=== PATIENT | female | born 1940 | race Caucasian/White ===

== ENCOUNTER 2016-08-10 10:18 | Outpatient (CLI) | payer MEDICARE, OTHER | END 2016-08-10 10:19 | disposition home or self-care (01) | DX: I10 Essential (primary) hypertension (principal); E11.9 Type 2 diabetes mellitus without complications; E78.00 Pure hypercholesterolemia, unspecified ==

== ENCOUNTER 2016-09-19 15:10 | Outpatient (CLI) | payer MEDICARE, OTHER ==
--- NOTE | 2016-09-20 18:58 | Ultrasound Report ---
TRANSVAGINAL ULTRASOUND: 09/19/2016 Patient has postmenopausal bleeding. Patient states that she still has periods and is on hormone rep lacement therapy for three years. Transvaginal pelvic ultrasound performed for detailed evaluation. Real-time scanning performed and s tatic images obtained. FINDINGS: Uterus is retroverted. It measures 8.5 cm x 3.9 cm x 7.4 cm for a volume of 128.3 mL. Ut erus demonstrates two central intrauterine cavities that suggest a bicornate uterus. The right centr al intrauterine cavity shows an endometrial echo complex of 6.4 mm. The left endometrial echo comple x has a diameter of 4.6 mm. No enhanced vascularity is detected in either central intrauterine cavit y. No fibroids are noted. Right ovary was not seen. Left ovary measures 2.5 cm x 1.9 cm x 1.4 cm for a volume of 3.5 mL. A benign left ovarian cyst is n oted measuring 2.9 cm x 2.4 cm x 2.2 cm. A small amount of fluid is noted in the cul-de-sac. IMPRESSION: UTERUS IS RETROVERTED, RETROFLEXED WITH A BICORNUATE CONFIGURATION. EACH ENDOMETRIAL ECHO COMPLEX SH OWS NO SIGNIFICANT ABNORMALITY WITH A DIAMETER THAT IS WITHIN NORMAL LIMITS. BENIGN LEFT OVARIAN CYST IS NOTED MEASURING 2.9 CM X 2.4 CM X 2.2 CM. RIGHT OVARY WAS NOT VISUALIZED. THIS SUGGESTS IT IS ATROPHIC. JOB #: [id number] EXT JOB #:[id number]
== END 2016-09-19 15:11 | disposition home or self-care (01) ==
LOC: DI 15:10
PROVIDERS: ATTEND Nurse Practitioner Obstetrics & Gynecology
DX: N83.202 Unspecified ovarian cyst, left side (principal); N95.0 Postmenopausal bleeding; N85.4 Malposition of uterus
CPT/HCPCS: 76830

== ENCOUNTER 2017-06-14 12:46 | Emergency (ER) | payer MEDICARE, OTHER ==
[2017-06-14 13:07] VITALS: BP 125/80
[2017-06-14] MEDS ORDERED: AMOX/CLAV 875 MG/125 MG TABLET PO STA (14:15)
[2017-06-14] MEDS ORDERED: HYDROcod/ACETAM 5/325 MG TABLET PO STA (14:15)
--- NOTE | 2017-06-14 14:17 | ED Physician Documentation ---
PD HPI UPPER EXT INJURY - Stated complaint Stated Complaint: LEFT ARM REDNESS - Chief complaint Chief Complaint: Ext Problem - History obtained from History obtained from: Patient - History of Present Illness Location: Other (She scraped her left forearm on a sharp edge in the house about 2 weeks ago. About 5 days ago it started to become red and more painful and warm. No general fevers. Tetanus is up-to-date.) Review of Systems Constitutional: denies: Fever, Chills GI: denies: Abdominal Pain, Nausea, Vomiting PD PAST MEDICAL HISTORY - Past Medical History Past Medical History: Yes Cardiovascular: Hypertension Neuro: None Endocrine/Autoimmune: Type 2 diabetes GI: Diverticulitis : None HEENT: Other Musculoskeletal: None Derm: None - Past Surgical History Past Surgical History: Yes General: Appendectomy, Bowel surgery - Present Medications Home Medications: Ambulatory Orders Medication Instructions Recorded Confirmed Pioglitazone [Actos] 30 mg ORAL DAILY 09/22/13 10/29/15 Albuterol Sulfate [Proventil Hfa 1 - 2 puffs INH Q6H PRN 10/29/15 10/29/15 Inhaler] Atorvastatin Calcium 20 mg PO DAILY 10/29/15 10/29/15 Azelastine HCl 2 sprays MINA QPM 10/29/15 10/29/15 Carisoprodol 350 - 700 mg PO TID PRN 10/29/15 10/29/15 Celecoxib [Celebrex] 200 mg PO BID 10/29/15 10/29/15 Estrogens, Conjugated [Premarin] 1.25 mg PO DAILY 10/29/15 10/29/15 Fluticasone [Flonase] 2 sprays MINA DAILY PRN 10/29/15 10/29/15 Lisinopril 5 mg PO DAILY 10/29/15 10/29/15 Loratadine [Claritin] 10 mg PO DAILY PRN 10/29/15 10/29/15 Metoprolol Tartrate 100 mg PO DAILY 10/29/15 10/29/15 Pioglitazone [Actos] 15 mg PO QPM 10/29/15 10/29/15 Polyethylene Glycol 3350 [Miralax] 17 gm PO DAILY 10/29/15 10/29/15 Triamterene/Hydrochlorothiazid 25 - 37.5 mg PO DAILY 10/29/15 10/29/15 [Triamterene-Hctz 37.5-25 mg Cp] Zolpidem [Ambien] 5 - 10 mg PO QPM PRN 10/29/15 10/29/15 metFORMIN [Glucophage] 1,000 mg PO QPM 10/29/15 10/29/15 Amox/Clav 875/125 [Augmentin] 1 each PO Q12H #14 tablet 06/14/17 HYDROcod/ACETAM 5/325 [[place] 5/325] 1 - 2 ea PO Q6H PRN #10 tablet 06/14/17 - Allergies Allergies/Adverse Reactions: Allergies Allergy/AdvReac Type Severity Reaction Status Date / Time No Known Drug Allergies Allergy Verified 11/06/15 23:30 - Social History Does the pt smoke?: No Smoking Status: Never smoker Does the pt drink ETOH?: No Does the pt have substance abuse?: No - Immunizations Immunizations are current?: Yes - POLST Patient has POLST: No PD ED PE NORMAL - Vitals Vital signs reviewed: Yes - General General: Alert and oriented X 3, No acute distress - Extremities Extremities: Other (There is a small abrasion over the upper dorsal left forearm with mild surrounding cellulitis a few centimeters outside of the border of the abrasion. No limited range of motion, no pain out of proportion to exam.) - Neuro Neuro: Alert and oriented X 3, Normal speech Results - Vitals Vitals: Vital Signs - 24 hr 06/14/17 13:04 Temperature 36.0 C L Heart Rate 58 L Respiratory 16 Rate Blood Pressure 125/80 O2 Saturation 97 Oxygen O2 Source [Without Activity] Room air O2 Source Room air PD MEDICAL DECISION MAKING - ED course ED course: During exam I was asked able to express a small amount of fluid, more serous than purulent from the wound which was sent for culture. Departure - Departure Disposition: 01 Home, Self Care Clinical Impression: Left arm cellulitis Condition: Good Record reviewed to determine appropriate education?: Yes Instructions: Cellulitis Dc Prescriptions: Amox/Clav 875/125 [Augmentin] 1 each PO Q12H #14 tablet HYDROcod/ACETAM 5/325 [[place] 5/325] 1 - 2 ea PO Q6H PRN #10 tablet PRN Reason: Pain Comments: We are performing a wound culture, the results should be done in 48-72 hours. If antibiotic change is necessary we will call you. Return if worse in the meantime, especially if you develop increased pain, fevers, cannot keep down the medication. Otherwise follow-up with your physician in approximately 2-3 days.
== END 2017-06-14 14:34 | disposition home or self-care (01) ==
LOC: ED 12:46
DX: L03.114 Cellulitis of left upper limb (principal); E11.9 Type 2 diabetes mellitus without complications; I10 Essential (primary) hypertension; Z79.84 Long term (current) use of oral hypoglycemic drugs
CPT/HCPCS: 87070; 87205; 99283; A9270

== ENCOUNTER 2017-06-25 17:30 | Emergency (ER) | payer MEDICARE, OTHER ==
[2017-06-25] MEDS ORDERED: TRIAMCINOLONE 0.1% OINT 15 GM TUBE TOP STA (17:38)
[2017-06-25 17:39] VITALS: BP 156/73
--- NOTE | 2017-06-25 17:42 | ED Physician Documentation ---
PD HPI UPPER EXT INJURY - Stated complaint Stated Complaint: SKIN REACTION LT ARM - Chief complaint Chief Complaint: Ext Problem - History obtained from History obtained from: Patient - History of Present Illness Location: Other (May be 4 weeks ago she scraped her left forearm on something. She was seen here about 11 days ago with what was thought to be a cellulitis at the time, Culture was taken and never grew anything. She was placed on Augmentin which did not really help and she saw her doctor in the interim and was started on doxycycline which has not helped her either. She also started some Keflex she had at home. The rash is bigger now. There is no fevers.) Review of Systems Constitutional: denies: Fever, Chills GI: denies: Abdominal Pain, Nausea, Vomiting : denies: Dysuria PD PAST MEDICAL HISTORY - Past Medical History Cardiovascular: Hypertension Neuro: None Endocrine/Autoimmune: Type 2 diabetes GI: Diverticulitis : None HEENT: Other Musculoskeletal: None Derm: None - Past Surgical History Past Surgical History: Yes General: Appendectomy, Bowel surgery - Present Medications Home Medications: Ambulatory Orders Medication Instructions Recorded Confirmed Pioglitazone [Actos] 30 mg ORAL DAILY 09/22/13 10/29/15 Albuterol Sulfate [Proventil Hfa 1 - 2 puffs INH Q6H PRN 10/29/15 10/29/15 Inhaler] Atorvastatin Calcium 20 mg PO DAILY 10/29/15 10/29/15 Azelastine HCl 2 sprays MINA QPM 10/29/15 10/29/15 Carisoprodol 350 - 700 mg PO TID PRN 10/29/15 10/29/15 Celecoxib [Celebrex] 200 mg PO BID 10/29/15 10/29/15 Estrogens, Conjugated [Premarin] 1.25 mg PO DAILY 10/29/15 10/29/15 Fluticasone [Flonase] 2 sprays MINA DAILY PRN 10/29/15 10/29/15 Lisinopril 5 mg PO DAILY 10/29/15 10/29/15 Loratadine [Claritin] 10 mg PO DAILY PRN 10/29/15 10/29/15 Metoprolol Tartrate 100 mg PO DAILY 10/29/15 10/29/15 Pioglitazone [Actos] 15 mg PO QPM 10/29/15 10/29/15 Polyethylene Glycol 3350 [Miralax] 17 gm PO DAILY 10/29/15 10/29/15 Triamterene/Hydrochlorothiazid 25 - 37.5 mg PO DAILY 10/29/15 10/29/15 [Triamterene-Hctz 37.5-25 mg Cp] Zolpidem [Ambien] 5 - 10 mg PO QPM PRN 10/29/15 10/29/15 metFORMIN [Glucophage] 1,000 mg PO QPM 10/29/15 10/29/15 Amox/Clav 875/125 [Augmentin] 1 each PO Q12H #14 tablet 06/14/17 HYDROcod/ACETAM 5/325 [[place] 5/325] 1 - 2 ea PO Q6H PRN #10 tablet 06/14/17 Nystatin/Triamcin 1 gm TP BID 30 Days #1 oint...g. 06/25/17 [Nystatin-Triamcinolone Ointm] - Allergies Allergies/Adverse Reactions: Allergies Allergy/AdvReac Type Severity Reaction Status Date / Time No Known Drug Allergies Allergy Verified 11/06/15 23:30 - Social History Does the pt smoke?: No Smoking Status: Never smoker Does the pt drink ETOH?: No Does the pt have substance abuse?: No - Immunizations Immunizations are current?: Yes - POLST Patient has POLST: No PD ED PE NORMAL - Vitals Vital signs reviewed: Yes - General General: Alert and oriented X 3, No acute distress - Extremities Extremities: Other (On the left posterior forearm she has a rash that really looks like a weeping contact dermatitis, it is extensive now and much worse than when I saw her previously.) - Neuro Neuro: Alert and oriented X 3, Normal speech Results - Vitals Vitals: Vital Signs - 24 hr 06/25/17 17:33 Temperature 36.4 C L Heart Rate 66 Respiratory 18 Rate Blood Pressure 156/73 H O2 Saturation 98 Oxygen O2 Source [Without Activity] Room air O2 Source Room air PD MEDICAL DECISION MAKING - ED course ED course: The rationale looks like a weeping contact dermatitis and really is not consistent with an infection. She says he is not using any topical antibiotics but is using a cream for the itch several times a day. I advised her to stop this and we will trial some Mycolog and have her follow-up with dermatology if not better. Departure - Departure Disposition: 01 Home, Self Care Clinical Impression: Contact dermatitis Qualifiers: Contact dermatitis type: unspecified Contact dermatitis trigger: unspecified trigger Qualified Code(s): L25.9 - Unspecified contact dermatitis, unspecified cause Condition: Good Record reviewed to determine appropriate education?: Yes Instructions: ED Dermatitis Contact Follow-Up: [facility] [Provider Group] - Within 1 week Prescriptions: Nystatin/Triamcin [Nystatin-Triamcinolone Ointm] 1 gm TP BID 30 Days #1 oint...g. Comments: You can wash gently with soap and water twice a day and then apply the cream under an dressing, do not scratch it or put anything else on it. If not better in a few days follow-up with the terminal manager listed on his farm, call for an appointment. Your blood pressure was elevated today on check into the emergency department. This does not mean that you have hypertension, it is a common phenomenon to come to the emergency department and have elevated blood pressure. I recommend that you see your primary care physician within the week to have it rechecked when you are feeling better.
== END 2017-06-25 18:29 | disposition home or self-care (01) ==
LOC: ED 17:30
DX: L25.9 Unspecified contact dermatitis, unspecified cause (principal); E11.9 Type 2 diabetes mellitus without complications; I10 Essential (primary) hypertension
CPT/HCPCS: 99283

== ENCOUNTER 2017-08-27 01:49 | Emergency (ER) | payer MEDICARE, OTHER ==
[2017-08-27] MEDS ORDERED: IOPAMIDOL-300 100 ML VIAL IVP ONE ×2 (01:50→04:25)
[2017-08-27 02:14] LABS: BILIRUBIN,URINE NEGATIVE (NEGATIVE); GLUCOSE, URINE (UA) NEGATIVE (NEGATIVE); KETONES,URINE (UA) NEGATIVE (NEGATIVE); LEUKOCYTE ESTERASE, URINE NEGATIVE (NEGATIVE); NITRITE,URINE NEGATIVE (NEGATIVE); OCCULT BLOOD,URINE NEGATIVE (NEGATIVE); PH,URINE 5.5 PH (5.0-7.5); PROTEIN,URINE NEGATIVE (NEGATIVE); UROBILINOGEN,URINE 0.2 (NORMAL) E.U./dL (NORMAL)
--- NOTE | 2017-08-27 02:23 | ED Physician Documentation ---
PD HPI BACK PAIN - Stated complaint Stated Complaint: BACK,RT LEG PAIN - Chief complaint Chief Complaint: Back Pain - History obtained from History obtained from: Patient - History of Present Illness Timing - onset: How many days ago (4) Timing - duration: Days (4) Timing - details: Gradual onset, Waxing and waning Pain level max: 9 Pain level now: 9 Location: Right Quality: Pain Associated symptoms: No: Fever, Weakness, Numbness Improves with: Nothing Worsened by: Other (no apparent exacerbating factors) Recently seen: Not recently seen Review of Systems Constitutional: denies: Fever, Chills, Sweats Cardiac: reports: Reviewed and negative Respiratory: reports: Reviewed and negative GI: reports: Abdominal Pain. denies: Nausea, Vomiting, Constipation, Diarrhea : denies: Dysuria, Frequency Musculoskeletal: reports: Back pain, Extremity pain Neurologic: denies: Focal weakness, Numbness PD PAST MEDICAL HISTORY - Past Medical History Cardiovascular: Hypertension Endocrine/Autoimmune: Type 2 diabetes GI: Diverticulitis : None HEENT: Other Musculoskeletal: None Derm: None - Past Surgical History Past Surgical History: Yes General: Appendectomy, Bowel surgery - Present Medications Home Medications: Ambulatory Orders Medication Instructions Recorded Confirmed Pioglitazone [Actos] 30 mg ORAL DAILY 09/22/13 10/29/15 Albuterol Sulfate [Proventil Hfa 1 - 2 puffs INH Q6H PRN 10/29/15 10/29/15 Inhaler] Atorvastatin Calcium 20 mg PO DAILY 10/29/15 10/29/15 Azelastine HCl 2 sprays MINA QPM 10/29/15 10/29/15 Carisoprodol 350 - 700 mg PO TID PRN 10/29/15 10/29/15 Celecoxib [Celebrex] 200 mg PO BID 10/29/15 10/29/15 Estrogens, Conjugated [Premarin] 1.25 mg PO DAILY 10/29/15 10/29/15 Fluticasone [Flonase] 2 sprays MINA DAILY PRN 10/29/15 10/29/15 Lisinopril 5 mg PO DAILY 10/29/15 10/29/15 Loratadine [Claritin] 10 mg PO DAILY PRN 10/29/15 10/29/15 Metoprolol Tartrate 100 mg PO DAILY 10/29/15 10/29/15 Pioglitazone [Actos] 15 mg PO QPM 10/29/15 10/29/15 Polyethylene Glycol 3350 [Miralax] 17 gm PO DAILY 10/29/15 10/29/15 Triamterene/Hydrochlorothiazid 25 - 37.5 mg PO DAILY 10/29/15 10/29/15 [Triamterene-Hctz 37.5-25 mg Cp] Zolpidem [Ambien] 5 - 10 mg PO QPM PRN 10/29/15 10/29/15 metFORMIN [Glucophage] 1,000 mg PO QPM 10/29/15 10/29/15 Amox/Clav 875/125 [Augmentin] 1 each PO Q12H #14 tablet 06/14/17 HYDROcod/ACETAM 5/325 [[place] 5/325] 1 - 2 ea PO Q6H PRN #10 tablet 06/14/17 Nystatin/Triamcin 1 gm TP BID 30 Days #1 oint...g. 06/25/17 [Nystatin-Triamcinolone Ointm] oxyCODONE/ACET 5/325 [Percocet 5 1 - 2 each PO Q6H PRN #14 tablet 08/27/17 mg/325 mg] - Allergies Allergies/Adverse Reactions: Allergies Allergy/AdvReac Type Severity Reaction Status Date / Time No Known Drug Allergies Allergy Verified 08/27/17 01:56 - Social History Does the pt smoke?: No Smoking Status: Never smoker Does the pt drink ETOH?: No Does the pt have substance abuse?: No - Immunizations Immunizations are current?: Yes - POLST Patient has POLST: No PD ED PE NORMAL - Vitals Vital signs reviewed: Yes - General General: Alert and oriented X 3, No acute distress (mostly NAD although episodically appears to be in painful discomfort), Well developed/nourished - Cardiac Cardiac: RRR, No murmur - Respiratory Respiratory: No respiratory distress, Clear bilaterally - Abdomen Abdomen: Soft, Non distended, Other (RLQ tenderness without rebound) - Back Back: No CVA TTP - Derm Derm: Normal color, Warm and dry, No rash - Extremities Extremities: No edema Results - Vitals Vitals: Vital Signs - 24 hr 08/27/17 08/27/17 08/27/17 01:55 03:38 05:59 Temperature 97.9 C H Heart Rate 71 72 75 Respiratory 20 18 16 Rate Blood Pressure 166/69 H 142/55 H 132/56 H O2 Saturation 98 97 96 Oxygen O2 Source [Without Activity] Room air O2 Source Room air - Labs Labs: Laboratory Tests 08/27/17 08/27/17 08/27/17 02:10 03:23 03:23 WBC 6.5 RBC 3.96 L Hgb 12.6 Hct 37.6 MCV 95.0 MCH 31.9 H MCHC 33.5 RDW 14.0 Plt Count 170 MPV 7.5 L Neut # 3.8 Lymph # 2.1 Bibb # 0.4 Eos # 0.2 Baso # 0.1 Absolute Nucleated RBC 0.00 Nucleated RBC % 0.0 Sodium 135 Potassium 4.3 Chloride 106 Carbon Dioxide 20 L Anion Gap 9.0 BUN 29 H Creatinine 1.4 H Estimated GFR (MDRD) 37 L Glucose 114 H Calcium 9.2 Total Bilirubin 0.2 AST 21 ALT 11 Alkaline Phosphatase 62 Total Protein 7.6 Albumin 4.2 Globulin 3.4 Albumin/Globulin Ratio 1.2 Lipase 31 Urine Color YELLOW Urine Clarity CLEAR Urine pH 5.5 Ur Specific Ada 1.015 Urine Protein NEGATIVE Urine Glucose (UA) NEGATIVE Urine Ketones NEGATIVE Urine Occult Blood NEGATIVE Urine Nitrite NEGATIVE Urine Bilirubin NEGATIVE Urine Urobilinogen 0.2 (NORMAL) Ur Leukocyte Esterase NEGATIVE Ur Microscopic Review NOT INDICATED Urine Culture Comments NOT INDICATED - Rads (name of study) CT A/P Radiology: Prelim report reviewed, See rad report PD MEDICAL DECISION MAKING - ED course Complexity details: reviewed results, re-evaluated patient, considered differential, d/w patient Departure - Departure Disposition: 01 Home, Self Care Clinical Impression: Abdominal pain Condition: Good Instructions: ED Abdominal Pain Unkn Cause Follow-Up: Ken Boykin MD [Primary Care Provider] - Prescriptions: oxyCODONE/ACET 5/325 [Percocet 5 mg/325 mg] 1 - 2 each PO Q6H PRN #14 tablet PRN Reason: Pain Discharge Date/Time: 08/27/17 06:01
[2017-08-27 02:27] LABS: CLARITY,URINE CLEAR (CLEAR)
[2017-08-27] MEDS ORDERED: MORPHINE 2 MG/ML SYRINGE IVP STA ×2 (02:44→05:35)
[2017-08-27 03:32] LABS: BASOPHILS # (AUTO) 0.1 10^3/uL (0.0-0.1); BASOPHILS % (AUTO) 0.8 %; EOSINOPHILS # (AUTO) 0.2 10^3/uL (0.0-0.7); HGB - HEMOGLOBIN 12.6 g/dL (12.0-16.0); LYMPHOCYTES # (AUTO) 2.1 10^3/uL (1.5-3.5); LYMPHOCYTES % (AUTO) 31.7 %; MEAN CORPUSCULAR HEMOGLOBIN 31.9 pg (27.0-31.0); MEAN CORPUSCULAR HGB CONC 33.5 g/dL (32.0-36.0); MEAN PLATELET VOLUME 7.5 fL (7.9-10.8); MONOCYTES # (AUTO) 0.4 10^3/uL (0.0-1.0); MONOCYTES % (AUTO) 6.7 %; NEUTROPHILS # (AUTO) 3.8 10^3/uL (1.5-6.6); NEUTROPHILS % (AUTO) 57.8 %; PLT - PLATELET COUNT 170 10^3/uL (130-450); RED BLOOD COUNT 3.96 10^6/uL (4.20-5.40); WHITE BLOOD COUNT 6.5 x10^3/uL (4.8-10.8)
[2017-08-27 03:44] LABS: ALBUMIN 4.2 g/dL (3.2-5.5); ALBUMIN/GLOBULIN RATIO 1.2 (1.0-2.2); BILIRUBIN,TOTAL 0.2 mg/dL (0.2-1.0); CALCIUM 9.2 mg/dL (8.5-10.3); CREATININE 1.4 mg/dL (0.4-1.0); TOTAL PROTEIN 7.6 g/dL (6.7-8.2)
[2017-08-27] MEDS ORDERED: SODIUM CHLORIDE 0.9% 1,000 ML IV STA (03:47)
[2017-08-27] MEDS ORDERED: IOPAMIDOL-300 100 ML VIAL ONE (04:07)
--- NOTE | 2017-08-27 05:14 | CT Preliminary Report ---
Exam: CT ABDOMEN/PELVIS W/ IMPRESSION: 1. No acute abdominal or pelvic abnormality. 2. Slowly enlarging left adnexal low-density lesion, now measuring 4.9 x 3.5 cm versus 3.5 cm previou sly. Further assessment recommended with a NONEMERGENT OUTPATIENT pelvis MRI without and with contras t. HANKA SITE ID: [id number]
--- NOTE | 2017-08-27 05:26 | CT Report ---
EXAM: CT ABDOMEN AND PELVIS EXAM DATE: 08/27/2017 04:40 AM. CLINICAL HISTORY: Abdominal pain. COMPARISONS: 10/29/2015. TECHNIQUE: Routine helical CT imaging was performed through the abdomen and pelvis. IV contrast: 80ML ISOVUE 300. Enteric contrast: No. Reconstructions: Coronal and sagittal. In accordance with CT protocol optimization, one or more of the following dose reduction techniques w ere utilized for this exam: automated exposure control, adjustment of mA and/or KV based on patient s ize, or use of iterative reconstructive technique. FINDINGS: ABDOMEN: Liver: No significant abnormality. Stomach/Distal Esophagus: No significant abnormality. Gallbladder: No significant abnormality. Bile Ducts: No significant abnormality. Pancreas: No significant abnormality. Spleen: No significant abnormality. Kidneys: No suspicious solid appearing lesion. No hydronephrosis. Adrenals: Subtle nodular thickening within the left adrenal is again noted (image 28 series 3). Stabi lity from the prior study favors a benign etiology. This nodule is difficult to characterize on this exam. It measures 12 mm in maximal diameter (image 28 series 3). Bowel: Prior near-complete colectomy. There is a small bowel rectal anastomosis within the central as pect of the pelvis. No evidence of bowel obstruction. Appendix: Surgically absent. Lymph Nodes: No pathologically enlarged nodes. Vasculature: Normal caliber aorta. Fluid: No significant free fluid. Abdominal Wall: No significant abnormality. Other: No significant abnormality. PELVIS: Uterus and Ovaries: Indeterminate left adnexal cystic lesion is noted, measuring 4.9 x 3.5 cm (image 66 series 3). Previously this measured up to 3.5 cm in maximal diameter. There is a bicornuate uterus . Right ovary is without definite abnormality. Bladder: No significant abnormality. Lymph Nodes: No pathologically enlarged nodes. Fluid: No significant free fluid. Other: None. BONES: No suspicious bony lesions. However, bones are osteopenic. This reduces exam sensitivity and specificity for detection of subtle bony lesions and/or fractures. Multiple vertebral hemangiomata a re noted. There is moderate multilevel degenerative change within the spine. LOWER CHEST: No significant consolidation or effusion. Mild dependent atelectasis. IMPRESSION: 1. No acute abdominal or pelvic abnormality. 2. Slowly enlarging left adnexal low-density lesion, now measuring 4.9 x 3.5 cm versus 3.5 cm previou sly. Further assessment recommended with a nonemergent outpatient pelvis MRI without and with contras tYvette MCKINNEYA Referring Provider Line: [phone] SITE ID: [id number]
[2017-08-27] MEDS ORDERED: oxyCODONE/ACET 5/325 Prepack 4 PO STA (05:35)
[2017-08-27 06:00] VITALS: BP 132/56
== END 2017-08-27 06:01 | disposition home or self-care (01) ==
LOC: ED 01:49
DX: R10.31 Right lower quadrant pain (principal); M54.9 Dorsalgia, unspecified; I10 Essential (primary) hypertension; E11.9 Type 2 diabetes mellitus without complications; Z79.84 Long term (current) use of oral hypoglycemic drugs
CPT/HCPCS: 36415; 74177; 80053; 81003; 83690; 85025; 96374; 96376; 99283; 99284; J2270; Q9967; 81001; 87086

== ENCOUNTER 2017-09-07 08:36 | Outpatient (CLI) | payer MEDICARE, OTHER ==
[~2017-09-07 08:36] MED LIST: GADOBUTROL 10 MMOL/10 ML VIAL ONE
[2017-09-07] MEDS ORDERED: GADOBUTROL 10 MMOL/10 ML VIAL IVP ONE (09:38)
--- NOTE | 2017-09-07 18:01 | MRI Report ---
EXAM: MR PELVIS WITH AND WITHOUT CONTRAST (MR FEMALE PELVIS) EXAM DATE: 09/07/2017 09:53 AM. CLINICAL HISTORY: Enlarging left adnexal mass. COMPARISON: 08/27/2017. TECHNIQUE: Multiplanar breath-hold T1, T2 and DWI sequences obtained through the pelvis on an MR scan ner. Images obtained before and after administration of 9 cc Gadavist intravenous contrast. FINDINGS: Reproductive Organs: Uterus: The uterus is retroverted and measures 6 x 4 x 7 cm with volume 90 cc. The endometrial stripe measures 5 mm. Septate uterus. Probable small 2 cm posterior fibroid. Right Ovary: The right ovary measures 2.5 x 2 cm . Atrophic with mild enhancement, within normal limi ts. Left Ovary: The left ovary measures 5.5 x 3 cm . 4.7 x 3.3 cm simple cyst with T1 hypointensity, T2 h yperintensity, and no enhancement. The wall is thin. This has increased in size from 3 x 2.4 cm on . Bowel: The visualized portions of the small bowel, colon, and rectum appear normal. Bladder: The urinary bladder appears normal. Other: None. IMPRESSION: 1. 4.7 x 3.3 cm simple left ovarian cyst with no internal enhancement or architecture, but has increa sed from 3 x 2.4 cm on 09/19/2016. Although simple in appearance, given increase in size and postmeno pausal status, recommend surgical consultation. Differential could include low-grade cystic ovarian n eoplasm. 2. Incidental septate uterus. [facility] Referring Provider Line: [phone] SITE ID: [id number]
== END 2017-09-07 08:37 | disposition home or self-care (01) ==
LOC: DI 08:36
PROVIDERS: ATTEND Family Medicine
DX: N83.202 Unspecified ovarian cyst, left side (principal)
CPT/HCPCS: 72197; A9585

== ENCOUNTER 2018-02-06 10:33 | Emergency (ER) | payer MEDICARE, OTHER ==
--- NOTE | 2018-02-06 11:10 | ED Physician Documentation ---
PD HPI UPPER EXT INJURY - Stated complaint Stated Complaint: LT WRIST INJURY - Chief complaint Chief Complaint: Ext Problem - History obtained from History obtained from: Patient - History of Present Illness Location: Left, Wrist Type of injury: Fall Where injury occurred: Other ([employer] [place]) Timing - onset: Yesterday Worsened by: Moving, Palpating Associated symptoms: No: Weakness, Numbness Similar symptoms before: Has not had sx before - Additonal information Additional information: The patient is a 77-year-old female who tripped at the [place] yesterday and fell, impacting her left wrist and both knees. She presents now with pain in her left wrist that is worse today than it was yesterday. She also has abrasions of both knees, but has been ambulatory without difficulty. She is right-hand dominant. Past history is significant for skin tear of her left forearm 3 weeks ago, which has been healing since that time. Review of Systems Constitutional: denies: Fever Cardiac: denies: Chest pain / pressure Respiratory: denies: Dyspnea, Cough GI: denies: Nausea, Vomiting Skin: reports: Abrasion (s) (both knees) Musculoskeletal: reports: Joint pain (left wrist). denies: Neck pain, Back pain Neurologic: denies: Focal weakness, Numbness, Headache PD PAST MEDICAL HISTORY - Past Medical History Past Medical History: Yes Cardiovascular: Hypertension Endocrine/Autoimmune: Type 2 diabetes GI: Diverticulitis : None HEENT: Other Musculoskeletal: None Derm: None - Past Surgical History Past Surgical History: Yes General: Appendectomy, Bowel surgery - Present Medications Home Medications: Ambulatory Orders Medication Instructions Recorded Confirmed Pioglitazone [Actos] 30 mg ORAL DAILY 09/22/13 10/29/15 Albuterol Sulfate [Proventil Hfa 1 - 2 puffs INH Q6H PRN 10/29/15 10/29/15 Inhaler] Atorvastatin Calcium 20 mg PO DAILY 10/29/15 10/29/15 Azelastine HCl 2 sprays MINA QPM 10/29/15 10/29/15 Carisoprodol 350 - 700 mg PO TID PRN 10/29/15 10/29/15 Celecoxib [Celebrex] 200 mg PO BID 10/29/15 10/29/15 Estrogens, Conjugated [Premarin] 1.25 mg PO DAILY 10/29/15 10/29/15 Fluticasone [Flonase] 2 sprays MINA DAILY PRN 10/29/15 10/29/15 Lisinopril 5 mg PO DAILY 10/29/15 10/29/15 Loratadine [Claritin] 10 mg PO DAILY PRN 10/29/15 10/29/15 Metoprolol Tartrate 100 mg PO DAILY 10/29/15 10/29/15 Pioglitazone [Actos] 15 mg PO QPM 10/29/15 10/29/15 Polyethylene Glycol 3350 [Miralax] 17 gm PO DAILY 10/29/15 10/29/15 Triamterene/Hydrochlorothiazid 25 - 37.5 mg PO DAILY 10/29/15 10/29/15 [Triamterene-Hctz 37.5-25 mg Cp] Zolpidem [Ambien] 5 - 10 mg PO QPM PRN 10/29/15 10/29/15 metFORMIN [Glucophage] 1,000 mg PO QPM 10/29/15 10/29/15 Amox/Clav 875/125 [Augmentin] 1 each PO Q12H #14 tablet 06/14/17 HYDROcod/ACETAM 5/325 [[place] 5/325] 1 - 2 ea PO Q6H PRN #10 tablet 06/14/17 Nystatin/Triamcin 1 gm TP BID 30 Days #1 oint...g. 06/25/17 [Nystatin-Triamcinolone Ointm] oxyCODONE/ACET 5/325 [Percocet 5 1 - 2 each PO Q6H PRN #14 tablet 08/27/17 mg/325 mg] Hydrocodone/Acetaminophen 1 - 2 each PO Q6H PRN #14 tablet 02/06/18 [Hydrocodon-Acetaminophen 5-325] - Allergies Allergies/Adverse Reactions: Allergies Allergy/AdvReac Type Severity Reaction Status Date / Time No Known Drug Allergies Allergy Verified 02/06/18 10:52 - Social History Does the pt smoke?: No Smoking Status: Never smoker Does the pt drink ETOH?: No Does the pt have substance abuse?: No - Immunizations Immunizations are current?: Yes - POLST Patient has POLST: No PD ED PE NORMAL - Vitals Vital signs reviewed: Yes (hypertensive) - General General: Alert and oriented X 3, Well developed/nourished, Other (Overweight.) - HEENT HEENT: Atraumatic, EOMI - Neck Neck: No bony TTP, No JVD - Cardiac Cardiac: RRR, No murmur - Respiratory Respiratory: No respiratory distress, Clear bilaterally - Abdomen Abdomen: Soft, Non tender - Back Back: No spinal TTP - Derm Derm: No rash - Extremities Extremities: Other (Tenderness to palpation radial aspect of the left wrist, with no deformity detected. There is a large lipoma noted over the dorsal aspect of the left distal forearm/wrist. There is healing skin tear of the proximal left forearm. Distal neurovascular is intact. Abrasions are present on infrapatellar aspects of both knees. No bony tenderness, and full range of motion without discomfort.) - Neuro Neuro: Alert and oriented X 3, No motor deficit, No sensory deficit, Normal speech Results - Vitals Vitals: Vital Signs - 24 hr 02/06/18 12:46 Heart Rate 61 Respiratory 16 Rate Blood Pressure 120/66 O2 Saturation 95 Oxygen O2 Source [] Room air O2 Source Room air - Rads (name of study) left wrist Radiology: Prelim report reviewed, EMP read contemporaneously, See rad report (No fracture identified. Severe degenerative changes at the first carpometacarpal joint.) PD MEDICAL DECISION MAKING - ED course Complexity details: reviewed results, re-evaluated patient, considered differential, d/w patient, d/w family ED course: Patient's presentation is significant for sprain of the left wrist, and abrasions of the knees bilaterally, caused by ground-level fall. Treatment in the emergency department included cleaning and antibiotic ointment dressing to the abrasions. X-ray of the left wrist reveals no acute fracture. The patient requested hydrocodone pain medication. I discussed with her that I would not normally prescribe narcotic medication for this type of injury. She persists, stating that she thinks 14 tablets is legally allowed. She is being discharged with prescription for 14 Vicodin. I discussed with her and her the expected course of injury, symptomatic treatment and outpatient follow-up, as well as potentially worrisome signs or symptoms that should prompt reevaluation in the emergency department. Departure - Departure Disposition: 01 Home, Self Care Clinical Impression: Fall Qualifiers: Encounter type: initial encounter Qualified Code(s): W19.XXXA - Unspecified fall, initial encounter Left wrist sprain Qualifiers: Encounter type: initial encounter Qualified Code(s): S63.502A - Unspecified sprain of left wrist, initial encounter Abrasion of knee, left Qualifiers: Encounter type: initial encounter Qualified Code(s): S80.212A - Abrasion, left knee, initial encounter Abrasion of right knee Qualifiers: Encounter type: initial encounter Qualified Code(s): S80.211A - Abrasion, right knee, initial encounter Condition: Stable Instructions: ED Abrasion, ED Sprain Wrist Follow-Up: Ken Boykin MD [Primary Care Provider] - Prescriptions: Hydrocodone/Acetaminophen [Hydrocodon-Acetaminophen 5-325] 1 - 2 each PO Q6H PRN #14 tablet PRN Reason: pain Comments: Keep the wounds clean, and apply antibiotic ointment twice daily. Apply ice pack intermittently to your left wrist for the next 2 or 3 days. You can use hydrocodone as prescribed if needed for pain. Follow-up with your primary physician within 2 weeks. Call to schedule appointment. Return to the emergency department if you develop any sign of infection, or otherwise worsening symptoms. Discharge Date/Time: 02/06/18 12:50
--- NOTE | 2018-02-06 11:50 | XRAY Report ---
Reason: fall, pain, swelling Procedure Date: 02/06/2018 Accession Number: [id number] / [id number] Procedure: XR - Wrist 4 View LT CPT Code: FULL RESULT: EXAM: LEFT WRIST RADIOGRAPHY EXAM DATE: 02/06/2018 11:33 AM. CLINICAL HISTORY: Fall, pain, swelling. COMPARISON: None. TECHNIQUE: 4 views. FINDINGS: Bones: Normal. No fractures or bone lesions. Joints: Severe degenerative changes at the first carpometacarpal joint. Soft Tissues: Normal. No soft tissue swelling. IMPRESSION: 1. No fracture identified. 2. Severe degenerative changes at the first carpometacarpal joint. RADIA
[2018-02-06] MEDS ORDERED: BACITRACIN OINT TOP ONE (12:30)
[2018-02-06 12:48] VITALS: BP 120/66
== END 2018-02-06 12:50 | disposition home or self-care (01) ==
LOC: ED 10:33
DX: S63.502A Unspecified sprain of left wrist, initial encounter (principal); S80.212A Abrasion, left knee, initial encounter; S80.211A Abrasion, right knee, initial encounter; W01.0XXA Fall on same level from slipping, tripping and stumbling without subsequent striking against object, initial encounter; Y92.242 Post office as the place of occurrence of the external cause; I10 Essential (primary) hypertension; E11.9 Type 2 diabetes mellitus without complications; Z79.84 Long term (current) use of oral hypoglycemic drugs
CPT/HCPCS: 73110; 99283; A9270

== ENCOUNTER 2018-08-16 14:16 | Outpatient (CLI) | payer MEDICARE, OTHER | END 2018-08-16 14:17 | disposition home or self-care (01) | LOC: RT 14:16 | PROVIDERS: ATTEND Internal Medicine Cardiovascular Disease | DX: R07.9 Chest pain, unspecified (principal); I10 Essential (primary) hypertension | CPT/HCPCS: 93005 ==

== ENCOUNTER 2018-09-12 13:54 | Outpatient (CLI) | payer MEDICARE, OTHER ==
--- NOTE | 2018-09-12 14:31 | XRAY Report ---
Reason: ACUTE ON CRHONIC BILATERAL KNEE PAIN Procedure Date: 09/12/2018 Accession Number: [id number] / [id number] Procedure: XR - Knee 3 View BILAT CPT Code: FULL RESULT: EXAMS: 1. Right Knee Radiography 2. Left Knee Radiography EXAM DATE:09/12/2018 02:16 PM. CLINICAL HISTORY:ACUTE ON CHRONIC BILATERAL KNEE PAIN. COMPARISON: None. TECHNIQUE: 3 views each. FINDINGS: Right Knee: Bones: Normal. No fractures or bone lesions. Joints: Mild to moderate tricompartmental osteoarthritis. Diffuse chondrocalcinosis. No joint effusion. Soft Tissues: Normal. No soft tissue swelling. Left Knee: Bones: Normal. No fracture or bone lesions. Joints: Mild to moderate patellofemoral compartmental osteoarthritis. No chondrocalcinosis or joint effusion. Soft Tissues: Normal. No soft tissue swelling. IMPRESSION: 1. No acute bony abnormality. No joint effusion. 2. Bilateral osteoarthritis, tricompartmental on the right and mainly patellofemoral compartment on the left, as described above. RADIA
== END 2018-09-12 13:55 | disposition home or self-care (01) ==
LOC: DI 13:54
PROVIDERS: ATTEND Family Medicine
DX: M17.0 Bilateral primary osteoarthritis of knee (principal); M11.262 Other chondrocalcinosis, left knee; M11.261 Other chondrocalcinosis, right knee

== ENCOUNTER 2018-11-04 00:07 | Emergency (ER) | payer MEDICARE, OTHER ==
--- NOTE | 2018-11-04 00:58 | ED Physician Documentation ---
History of Present Illness - Stated complaint Stated Complaint: RT LEG/ANKLE PX - Chief complaint Chief Complaint: Wound - History obtained from History obtained from: Patient - History of Present Illness Timing: How many weeks ago (2) Improved by: nothing Worsened by: no exacerbating factors - Additonal information Additional information: 2 weeks of gradual onset, gradually worsening painful rash RLE. currently on keflex for eye infection (per patient) Review of Systems Constitutional: reports: Reviewed and negative Skin: reports: Rash Musculoskeletal: reports: Extremity pain. denies: Extremity swelling Neurologic: denies: Focal weakness, Numbness PD PAST MEDICAL HISTORY - Past Medical History Past Medical History: Yes Cardiovascular: Hypertension Endocrine/Autoimmune: Type 2 diabetes GI: Diverticulitis : None HEENT: Other Musculoskeletal: None Derm: None - Past Surgical History Past Surgical History: Yes General: Appendectomy, Bowel surgery - Present Medications Home Medications: Ambulatory Orders Medication Instructions Recorded Confirmed Albuterol Sulfate [Proventil Hfa 1 - 2 puffs INH Q6H PRN 10/29/15 11/04/18 Inhaler] Atorvastatin Calcium 20 mg PO DAILY 10/29/15 11/04/18 Estrogens, Conjugated [Premarin] 1.25 mg PO DAILY 10/29/15 11/04/18 Lisinopril 5 mg PO DAILY 10/29/15 11/04/18 Loratadine [Claritin] 10 mg PO DAILY PRN 10/29/15 11/04/18 Metoprolol Tartrate 100 mg PO DAILY 10/29/15 11/04/18 Pioglitazone [Actos] 15 mg PO QPM 10/29/15 10/29/15 Zolpidem [Ambien] 5 - 10 mg PO QPM PRN 10/29/15 11/04/18 Hydrocodone/Acetaminophen 1 - 2 each PO Q6H PRN #14 tablet 02/06/18 11/04/18 [Hydrocodon-Acetaminophen 5-325] Cephalexin [Keflex] 250 mg PO Q6H 11/04/18 11/04/18 Mupirocin 1 film TP BID #22 oint...g. 11/04/18 Sulfamethox/Trimeth 800/160 1 each PO BID #14 tablet 11/04/18 [Bactrim Ds 800/160] - Allergies Allergies/Adverse Reactions: Allergies Allergy/AdvReac Type Severity Reaction Status Date / Time No Known Drug Allergies Allergy Verified 11/04/18 00:31 - Social History Does the pt smoke?: No Smoking Status: Never smoker Does the pt drink ETOH?: No Does the pt have substance abuse?: No - Immunizations Immunizations are current?: Yes - POLST Patient has POLST: No PD ED PE NORMAL - Vitals Vital signs reviewed: Yes - General General: Alert and oriented X 3, No acute distress, Well developed/nourished - Extremities Extremities: No edema PD ED PE EXPANDED - Extremities JUAN LE visual: 1 - rash (flat erythema with sharp margins, scant serous discharge, tender to palpation) Results - Vitals Vitals: Oxygen O2 Source [Without Activity] Room air O2 Source Room air PD MEDICAL DECISION MAKING - ED course Complexity details: considered differential, d/w patient, d/w family ED course: patient repeatedly and adamantly requesting IV antibiotics. I explained why I do not feel intravenous antibiotics are indicated at this time, but a dose of IM rocephin is reasonable if she wants a more aggressive approach than only PO abx; she enthusiastically agrees with IM rocephin. Departure - Departure Disposition: 01 Home, Self Care Clinical Impression: Cellulitis Condition: Good Instructions: ED Infec Skin Cellulitis Follow-Up: Ken Boykin MD [Primary Care Provider] - (3-5 days) Prescriptions: Mupirocin 1 film TP BID #22 oint...g. Sulfamethox/Trimeth 800/160 [Bactrim Ds 800/160] 1 each PO BID #14 tablet Discharge Date/Time: 11/04/18 01:40
[2018-11-04] MEDS ORDERED: LIDOCAINE 1% 2 ML VIAL MC ONE (01:11)
[2018-11-04] MEDS ORDERED: cefTRIAXone 1 GM VIAL IM STA (01:11)
[2018-11-04] MEDS ORDERED: KETOROLAC 30 MG/ML VIAL IM STA (01:11)
[2018-11-04 01:23] VITALS: BP 139/58
== END 2018-11-04 01:40 | disposition home or self-care (01) ==
LOC: ED 00:07
DX: L03.115 Cellulitis of right lower limb (principal); I10 Essential (primary) hypertension; E11.9 Type 2 diabetes mellitus without complications
CPT/HCPCS: 96372; 99283

== ENCOUNTER 2023-08-01 13:44 | Outpatient (CLI) | payer MEDICARE, OTHER ==
--- NOTE | 2023-08-01 21:30 | Ultrasound Report ---
PROCEDURE: Extremity Soft Tissue Limited INDICATIONS: UPPER LIMB MASS TECHNIQUE: Real-time scanning was performed of the left wrist, with image documentation. COMPARISON: None. FINDINGS: Focused ultrasound examination of left wrist labral reported area of palpable lump. No dis crete soft tissue mass or fluid collection IMPRESSION: No abnormality is seen in left wrist at patient's reported area of palpable lump. Reviewed by: Storm Torres MD on 08/01/2023 9:29 PM PDT Approved by: Storm Torres MD on 08/01/2023 9:29 PM PDT Station ID: [id number]
== END 2023-08-01 13:45 | disposition home or self-care (01) ==
LOC: DI 13:44
PROVIDERS: ATTEND Registered Nurse
DX: R22.32 Localized swelling, mass and lump, left upper limb (principal)

== ENCOUNTER 2023-11-29 10:51 | Emergency (ER) | payer MEDICARE, OTHER ==
--- NOTE | 2023-11-29 11:15 | ED Physician Documentation ---
PD HPI FEMALE - Stated complaint Stated Complaint: - Chief complaint Chief Complaint: UTI - History obtained from History obtained from: Patient - History of Present Illness Timing - onset: How many days ago (has had some frequency of urination for 2-3 weeks, but just got uncomfortable with pain the past 2 days. No fever. No vomiting. Feeling similar to UTIs in the past, with most recent one beinhg about 6 months ago.) Timing - duration: Days Timing - details: Gradual onset, Still present, Waxing and waning Associated symptoms: Dysuria, Urinary frequency. No: Fever, Vaginal bleeding, Vaginal discharge, Genital sore/lesion, Hematuria Contributing factors: Not sexually active (her and pt state have not had sexual contact for long time.) Review of Systems Constitutional: denies: Fever, Chills GI: denies: Nausea, Vomiting PD PAST MEDICAL HISTORY - Past Medical History Past Medical History: Yes Cardiovascular: Hypertension Respiratory: None Neuro: None Endocrine/Autoimmune: Type 2 diabetes GI: GERD, Diverticulitis [employer]: None : None HEENT: Other Psych: None Musculoskeletal: None Derm: None - Past Surgical History Past Surgical History: Yes General: Appendectomy, Bowel surgery Ortho: Knee replacement - Present Medications Home Medications: Ambulatory Orders Medication Instructions Recorded Confirmed Albuterol Sulfate [Proventil Hfa 1 - 2 puffs INH Q6H PRN 10/29/15 11/04/18 Inhaler] Atorvastatin Calcium 20 mg PO DAILY 10/29/15 11/04/18 Estrogens, Conjugated [Premarin] 1.25 mg PO DAILY 10/29/15 11/04/18 Loratadine [Claritin] 10 mg PO DAILY PRN 10/29/15 11/04/18 Metoprolol Tartrate 100 mg PO DAILY 10/29/15 11/04/18 Pioglitazone [Actos] 15 mg PO QPM 10/29/15 10/29/15 Zolpidem [Ambien] 5 - 10 mg PO QPM PRN 10/29/15 11/04/18 lisinopriL [Lisinopril] 5 mg PO DAILY 10/29/15 11/04/18 Hydrocodone/Acetaminophen 1 - 2 each PO Q6H PRN #14 tablet 02/06/18 11/04/18 [Hydrocodon-Acetaminophen 5-325] Mupirocin 1 film TP BID #22 oint...g. 11/04/18 Sulfamethox/Trimeth 800/160 1 each PO BID #14 tablet 11/04/18 [Bactrim Ds 800/160] cephALEXin [Keflex] 250 mg PO Q6H 11/04/18 11/04/18 Phenazopyridine HCl [Pyridium] 100 mg PO TID PRN #15 tablet 11/29/23 cephALEXin [Keflex] 500 mg PO TID #20 cap 11/29/23 - Allergies Allergies/Adverse Reactions: Allergies Allergy/AdvReac Type Severity Reaction Status Date / Time No Known Drug Allergies Allergy Verified 11/29/23 10:59 - Social History Does the pt smoke?: No Smoking Status: Never smoker Does the pt drink ETOH?: No Does the pt have substance abuse?: No - Immunizations Immunizations are current?: Yes - POLST Patient has POLST: No PD ED PE NORMAL - Vitals Vital signs reviewed: Yes - General General: Alert and oriented X 3, No acute distress, Well developed/nourished - Abdomen Abdomen: Soft, Non tender, Non distended - Female Female : Deferred - Back Back: No CVA TTP - Derm Derm: Normal color, Warm and dry Results - Vitals Vitals: Vital Signs - 24 hr 11/29/23 11/29/23 10:59 12:53 Temperature 36.3 C L 36.4 C L Heart Rate 65 78 Respiratory 18 18 Rate Blood Pressure 180/88 H 144/95 H O2 Saturation 97 98 Oxygen O2 Source [Without Activity] Room air O2 Source Room air - Labs Labs: Laboratory Tests 11/29/23 11:16 Urine Color YELLOW Urine Clarity CLOUDY Urine pH 6.0 Ur Specific [place] 1.020 Urine Protein NEGATIVE Urine Glucose (UA) NEGATIVE Urine Ketones NEGATIVE Urine Occult Blood SMALL H Urine Nitrite POSITIVE H Urine Bilirubin NEGATIVE Urine Urobilinogen 0.2 (NORMAL) Ur Leukocyte Esterase MODERATE H Urine RBC 6-10 H Urine WBC >25 H Urine WBC Clumps PRESENT Ur Squamous Epith Cells FEW Squamous Urine Bacteria Moderate H Ur Microscopic Review INDICATED Urine Culture Comments INDICATED PD Medical Decision Making - ED course Complexity details: reviewed results (UA c/w UTI. ), considered differential (has dysuria at times for 2-3 weeks and more consistent the past 2-3 days. Concerned about UTI. ), d/w patient Departure - Departure Disposition: 01 Home, Self Care Clinical Impression: Urinary tract infection, Dysuria Condition: Stable Record reviewed to determine appropriate education?: Yes Instructions: ED UTI Cystitis Female Follow-Up: Rj Bridges MD [Primary Care Provider] - Prescriptions: cephALEXin [Keflex] 500 mg PO TID #20 cap Phenazopyridine HCl [Pyridium] 100 mg PO TID PRN #15 tablet PRN Reason: Abdominal Pain Comments: Your urine does show signs of infection. Your bladder scanner showed very minimal urine left in the bladder so the feeling of having to go frequently is more triggering of the bladder outlet from the inflammation and infection. We can improve on that symptom with the phenazopyridine. Stay well-hydrated otherwise. Cephalexin antibiotic for the infection. We will do a culture on your urine and call you in a couple of days when that results if there is a need to change the antibiotic choice. Otherwise I would anticipate improvement over the next 2 to 3 days and resolved by 3 to 5 days. Recheck if worsening in the meantime. Follow-up with your primary care. I sent your prescriptions to your preferred [facility] pharmacy in [place]. Forms: PCP List Discharge Date/Time: 11/29/23 12:54
[2023-11-29 11:44] LABS: BILIRUBIN,URINE NEGATIVE (NEGATIVE); GLUCOSE, URINE (UA) NEGATIVE (NEGATIVE); KETONES,URINE (UA) NEGATIVE (NEGATIVE); LEUKOCYTE ESTERASE, URINE MODERATE (NEGATIVE); NITRITE,URINE POSITIVE (NEGATIVE); OCCULT BLOOD,URINE SMALL (NEGATIVE); PROTEIN,URINE NEGATIVE (NEGATIVE); UROBILINOGEN,URINE 0.2 (NORMAL) E.U./dL (NORMAL)
[2023-11-29 11:46] LABS: CLARITY,URINE CLOUDY (CLEAR)
[2023-11-29 11:55] LABS: BACTERIA,URINE Moderate /HPF (None Seen); SQUAMOUS EPITHELIAL CELL,UR FEW Squamous (<= Few); WBC CLUMPS,URINE PRESENT; WBC,URINE >25 /HPF (0-5)
[2023-11-29] MEDS: PHENAZOPYRIDINE 100 MG TABLET PO STA (12:16)
[2023-11-29] MEDS: cephALEXin 250 MG CAPSULE PO STA (12:17)
[2023-11-29 13:00] VITALS: BP 144/95; O2SAT 98
== END 2023-11-29 12:54 | disposition home or self-care (01) ==
LOC: ED 10:51
DX: N39.0 Urinary tract infection, site not specified (principal)
CPT/HCPCS: 51798; 81001; 87077; 87086; 87181; 99283; A9270; 81003

== ENCOUNTER 2023-12-09 23:43 | Emergency (ER) | payer MEDICARE, OTHER ==
[2023-12-10 00:21] LABS: BILIRUBIN,URINE NEGATIVE (NEGATIVE); GLUCOSE, URINE (UA) NEGATIVE (NEGATIVE); KETONES,URINE (UA) NEGATIVE (NEGATIVE); LEUKOCYTE ESTERASE, URINE MODERATE (NEGATIVE); NITRITE,URINE NEGATIVE (NEGATIVE); OCCULT BLOOD,URINE TRACE-INTA (NEGATIVE); PROTEIN,URINE NEGATIVE (NEGATIVE); UROBILINOGEN,URINE 0.2 (NORMAL) E.U./dL (NORMAL)
[2023-12-10 00:25] VITALS: BP 167/66; O2SAT 99
[2023-12-10 00:35] LABS: BACTERIA,URINE Moderate /HPF (None Seen); CLARITY,URINE HAZY (CLEAR); RBC,URINE 0-5 /HPF (0-5); SQUAMOUS EPITHELIAL CELL,UR MOD Squamous (<= Few); WBC,URINE >25 /HPF (0-5)
== END 2023-12-10 02:23 | disposition left against medical advice (07) ==
LOC: ED 23:43
DX: Z53.21 Procedure and treatment not carried out due to patient leaving prior to being seen by health care provider (principal); M54.50 Low back pain, unspecified
CPT/HCPCS: 81001; 87086

== ENCOUNTER 2023-12-17 10:02 | Outpatient (CLI) | payer MEDICARE, OTHER | END 2023-12-17 23:59 | disposition critical access hospital (66) | LOC: EMS 10:02 | DX: R05.9 Cough, unspecified (principal); R11.10 Vomiting, unspecified; M54.9 Dorsalgia, unspecified; R06.09 Other forms of dyspnea | CPT/HCPCS: A0425; A0429 ==

== ENCOUNTER 2023-12-17 10:30 | Emergency (ER) | payer MEDICARE, OTHER ==
--- NOTE | 2023-12-17 11:17 | ED Physician Documentation ---
History of Present Illness - Stated complaint Stated Complaint: BACK PX - Chief complaint Chief Complaint: General - History obtained from History obtained from: Patient - Additonal information Additional information: This is an 83-year-old female who presents with a number of different concerns today. The patient states that she was originally diagnosed with urinary tract infection at the end of November, she was placed on Keflex which worked but then she did have recurrence of some mild dysuria urgency and frequency and 2 days ago was put on Bactrim by her PCP. She states she believes Bactrim caused her to have a cough which she has a history of allergy to sulfa medication. Triage note notes the cough is been present for 4 weeks and the patient states it only worsened the last couple of days. She has some white sputum, and has chronic shortness of breath that is unchanged. She has not had a fever or chills. The cough however is causing her to have some lower back pain. It is in the lower back near the buttocks bilaterally and does not extend upper back. She denies any chest pain, no new difficulty breathing, she has not had any nausea, vomiting, diarrhea or constipation. She wants to stop the Bactrim and wants to be put on "to the medication that I was given last time for UTI." Review of Systems Constitutional: reports: Reviewed and negative Eyes: reports: Reviewed and negative Ears: reports: Reviewed and negative Nose: reports: Reviewed and negative Throat: reports: Reviewed and negative Cardiac: reports: Reviewed and negative Respiratory: reports: Dyspnea, Cough GI: reports: Reviewed and negative. denies: Abdominal Pain, Abdominal Swelling, Nausea, Vomiting, Constipation, Diarrhea : reports: Dysuria, Frequency, Hesitancy. denies: Hematuria Skin: reports: Reviewed and negative Musculoskeletal: reports: Back pain Neurologic: reports: Reviewed and negative PD PAST MEDICAL HISTORY - Past Medical History Past Medical History: Yes Cardiovascular: Hypertension Respiratory: None Neuro: None Endocrine/Autoimmune: Type 2 diabetes GI: GERD, Diverticulitis BACK PADDER: None : None HEENT: Other Psych: None Musculoskeletal: None Derm: None - Past Surgical History Past Surgical History: Yes General: Appendectomy, Bowel surgery Ortho: Knee replacement - Present Medications Home Medications: Ambulatory Orders Medication Instructions Recorded Confirmed Albuterol Sulfate [Proventil Hfa 1 - 2 puffs INH Q6H PRN 10/28/11/04/18 Inhaler] Atorvastatin Calcium 20 mg PO DAILY 10/29/15 11/04/18 Estrogens, Conjugated [Premarin] 1.25 mg PO DAILY 10/29/15 11/04/18 Loratadine [Claritin] 10 mg PO DAILY PRN 10/29/15 11/04/18 Metoprolol Tartrate 100 mg PO DAILY 10/29/15 11/04/18 Pioglitazone [Actos] 15 mg PO QPM 10/29/15 10/29/15 Zolpidem [Ambien] 5 - 10 mg PO QPM PRN 10/29/15 11/04/18 lisinopriL [Lisinopril] 5 mg PO DAILY 10/29/15 11/04/18 Hydrocodone/Acetaminophen 1 - 2 each PO Q6H PRN #14 tablet 02/06/18 11/04/18 [Hydrocodon-Acetaminophen 5-325] Mupirocin 1 film TP BID #22 oint...g. 11/04/18 cephALEXin [Keflex] 250 mg PO Q6H 11/04/18 11/04/18 Phenazopyridine HCl [Pyridium] 100 mg PO TID PRN #15 tablet 11/29/23 cephALEXin [Keflex] 500 mg PO TID #20 cap 11/29/23 Phenazopyridine HCl [Pyridium] 200 mg PO TID PRN #6 tablet 12/17/23 cephALEXin [Keflex] 500 mg PO TID #21 cap 12/17/23 - Allergies Allergies/Adverse Reactions: Allergies Allergy/AdvReac Type Severity Reaction Status Date / Time Sulfa (Sulfonamide Allergy Mild Respiratory Verified 12/17/23 10:49 Antibiotics) - Social History Does the pt smoke?: No Smoking Status: Never smoker Does the pt drink ETOH?: No Does the pt have substance abuse?: No - Immunizations Immunizations are current?: Yes - POLST Patient has POLST: No PD ED PE NORMAL - Vitals Vital signs reviewed: Yes - General General: Alert and oriented X 3, No acute distress, Well developed/nourished - HEENT HEENT: Atraumatic, Moist mucous membranes - Neck Neck: Supple, no meningeal sign, No adenopathy - Cardiac Cardiac: RRR, No murmur, No gallop, No rub - Respiratory Respiratory: No respiratory distress, Clear bilaterally - Abdomen Abdomen: Normal bowel sounds, Soft, Non tender, Non distended - Back Back: No CVA TTP, No spinal TTP, Other (No CVAT, she has some bilateral paravertebral muscular tenderness in the lumbosacral spine.) - Derm Derm: Normal color, Warm and dry, No rash - Extremities Extremities: No deformity, No tenderness to palpate, Normal ROM s pain, No edema, No calf tenderness / cord - Neuro Neuro: Alert and oriented X 3 Eye Opening: Spontaneous Motor: Obeys Commands Verbal: Oriented GCS Score: 15 - Psych Psych: Normal mood, Normal affect Results - Vitals Vitals: Vital Signs - 24 hr 12/17/23 12/17/23 12/17/23 10:39 12:46 13:37 Temperature 36.7 C 36.7 C Heart Rate 98 87 87 Respiratory 20 16 16 Rate Blood Pressure 189/71 H 162/89 H 162/89 H O2 Saturation 96 97 97 Oxygen O2 Source [Without Activity] Room air O2 Source Room air - Labs Labs: Laboratory Tests 12/17/23 12/17/23 12/17/23 11:17 11:17 11:58 WBC 5.9 RBC 4.01 L Hgb 12.9 Hct 40.2 MCV 100.2 H MCH 32.2 H MCHC 32.1 RDW 13.9 Plt Count 154 MPV 8.6 Neut # (Auto) 5.3 Lymph # (Auto) 0.3 L Gaines # (Auto) 0.3 Eos # (Auto) 0.0 Baso # (Auto) 0.0 Absolute Nucleated RBC 0.00 Nucleated RBC % 0.0 Sodium 133 L Potassium 4.2 Chloride 100 L Carbon Dioxide 25 Anion Gap 8.0 BUN 14 Creatinine 1.2 Estimated GFR (MDRD) 43 L Glucose 163 H Calcium 9.5 Total Bilirubin 0.8 AST 16 ALT 6 L Alkaline Phosphatase 67 Total Protein 7.0 Albumin 3.9 Globulin 3.1 Albumin/Globulin Ratio 1.3 Lipase 17 Urine Color DARK YELLOW Urine Clarity HAZY Urine pH 6.0 Ur Specific [place] 1.025 Urine Protein NEGATIVE Urine Glucose (UA) NEGATIVE Urine Ketones NEGATIVE Urine Occult Blood SMALL H Urine Nitrite NEGATIVE Urine Bilirubin NEGATIVE Urine Urobilinogen 0.2 (NORMAL) Ur Leukocyte Esterase NEGATIVE Urine RBC 6-10 H Urine WBC 6-10 H Ur Squamous Epith Cells MOD Squamous H Urine Bacteria Few Ur Microscopic Review INDICATED Urine Culture Comments NOT INDICATED - Rads (name of study) No standard instances Relevant Findings:: Final report received PD Medical Decision Making - ED course Complexity details: reviewed old records, reviewed results, re-evaluated patient, considered differential, d/w patient ED course: This is an 83-year-old female who presents with several concerns today. She is having lower back pain which is secondary to a cough which she believes is due to recently being prescribed Bactrim which she historically has an allergy to. She is also concerned about ongoing UTI symptoms. She was treated for Klebsiella UTI the end of November with cephalexin which worked but symptoms recur red. She was placed on Bactrim thereafter. On exam, patient is nontoxic, afebrile and well-appearing. She has clear lung sounds and is oxygenating well on room air. She does not have any CVAT but does have some lower lumbar sacral paravertebral muscle tenderness which may be secondary to her cough. I obtained a chest x-ray which is negative for signs of pneumonia, labs are generally reassuring including CBC and BMP. I did obtain a CT with contrast of her abdomen pelvis to evaluate for possible pyelonephritis ureteral stones causing her pain and this was essentially negative as noted. I reviewed her urinalysis today which is negative though she has been on antibiotics therefore is difficult to interpret. Given her ongoing urinary symptoms, I will give her another course of Keflex and she should stop the Bactrim. She is following up with urologist this next week at [facility] and I encouraged her to keep that appointment. I discussed return precautions if worsening symptoms particularly if she developed a fever, nausea or vomiting, increasing shortness of breath or chest pain or other new concerns. Departure - Departure Disposition: 01 Home, Self Care Clinical Impression: UTI (urinary tract infection) Qualifiers: Urinary tract infection type: acute cystitis Hematuria presence: without hematuria Qualified Code(s): N30.00 - Acute cystitis without hematuria Condition: Good Instructions: ED UTI Cystitis Female Prescriptions: cephALEXin [Keflex] 500 mg PO TID #21 cap Phenazopyridine HCl [Pyridium] 200 mg PO TID PRN #6 tablet PRN Reason: dysuria Comments: Your urine is no longer sent showing signs of infection however you have been on antibiotics therefore it is difficult to tell if you recently had a UTI or not. Since you has had a reaction to the sulfa drug, I have changed antibiotic back to the Keflex that has worked for you in the past. Please follow-up with the urologist as planned as sometimes people can have symptoms That feel like a urinary tract infection but are not. Your CT scan today did not show any other concerns. Please drink plenty of water, and I have also prescribed Pyridium which can help with urinary symptoms but often turns your urine quite orange. Return to the emergency department if you develop a fever, flank pain or new concerns. Forms: PCP List Discharge Date/Time: 12/17/23 13:38
[2023-12-17 11:22] LABS: BASOPHILS % (AUTO) 0.2 %; EOSINOPHILS % (AUTO) 0.2 %; HCT - HEMATOCRIT 40.2 % (37.0-47.0); HGB - HEMOGLOBIN 12.9 g/dL (12.0-16.0); LYMPHOCYTES # (AUTO) 0.3 10^3/uL (1.5-3.5); LYMPHOCYTES % (AUTO) 4.3 %; MEAN CORPUSCULAR HEMOGLOBIN 32.2 pg (27.0-31.0); MEAN CORPUSCULAR HGB CONC 32.1 g/dL (32.0-36.0); MEAN CORPUSCULAR VOLUME 100.2 fL (81.0-99.0); MEAN PLATELET VOLUME 8.6 fL (7.9-10.8); MONOCYTES # (AUTO) 0.3 10^3/uL (0.0-1.0); MONOCYTES % (AUTO) 5.5 %; NEUTROPHILS # (AUTO) 5.3 10^3/uL (1.5-6.6); NEUTROPHILS % (AUTO) 89.3 %; PLT - PLATELET COUNT 154 10^3/uL (130-450); RED BLOOD COUNT 4.01 10^6/uL (4.20-5.40); RED CELL DISTRIBUTION WIDTH 13.9 % (12.0-15.0); WHITE BLOOD COUNT 5.9 x10^3/uL (4.8-10.8)
--- NOTE | 2023-12-17 11:26 | XRAY Report ---
PROCEDURE: Chest 1V INDICATIONS: chest pain TECHNIQUE: One view of the chest was acquired. COMPARISON: None. FINDINGS: Surgical changes and devices: None. Lungs and pleura: No pleural effusions or pneumothorax. Lungs are clear. Mediastinum: Mediastinal contours appear normal. Heart size is normal. Bones and chest wall: No suspicious bony lesions. Overlying soft tissues appear unremarkable. IMPRESSION: No acute cardiopulmonary process. Reviewed by: Ar Lockhart MD on 12/17/2023 10:25 AM CARLOS Approved by: Ar Lockhart MD on 12/17/2023 10:25 AM CARLOS Station ID: [id number]
[2023-12-17 11:35] LABS: ALBUMIN 3.9 g/dL (3.2-5.5); ALBUMIN/GLOBULIN RATIO 1.3 (1.0-2.2); BILIRUBIN,TOTAL 0.8 mg/dL (0.2-1.0); CALCIUM 9.5 mg/dL (8.5-10.3); CREATININE 1.2 mg/dL (0.6-1.3); POTASSIUM 4.2 mmol/L (3.5-4.5)
[2023-12-17 12:03] LABS: BILIRUBIN,URINE NEGATIVE (NEGATIVE); GLUCOSE, URINE (UA) NEGATIVE (NEGATIVE); KETONES,URINE (UA) NEGATIVE (NEGATIVE); LEUKOCYTE ESTERASE, URINE NEGATIVE (NEGATIVE); NITRITE,URINE NEGATIVE (NEGATIVE); OCCULT BLOOD,URINE SMALL (NEGATIVE); PROTEIN,URINE NEGATIVE (NEGATIVE); UROBILINOGEN,URINE 0.2 (NORMAL) E.U./dL (NORMAL)
[2023-12-17 12:04] LABS: CLARITY,URINE HAZY (CLEAR)
[2023-12-17] MEDS ORDERED: iohexoL-300 100 ML VIAL ONE (12:11)
[2023-12-17 12:19] LABS: BACTERIA,URINE Few /HPF (None Seen); SQUAMOUS EPITHELIAL CELL,UR MOD Squamous (<= Few)
[2023-12-17 13:01] VITALS: BP 162/89; O2SAT 97
--- NOTE | 2023-12-17 13:11 | CT Report ---
PROCEDURE: Abdomen/Pelvis W INDICATIONS: concern for pyelo CONTRAST: omni, 100 TECHNIQUE: After the administration of intravenous contrast, a CT scan of the abdomen and pelvis was performed. Images were recorded and evaluated at appropriate window settings. Reformats: coronal and sagittal. F or radiation dose reduction, the following was used: automated exposure control, adjustment of mA and /or kV according to patient size. COMPARISON: 08/27/2017. FINDINGS: Image quality: Diagnostic. Lower chest: Bibasilar atelectasis. Heart size is normal. Coronary artery atherosclerotic calcificati ons. Liver: Hepatic steatosis. Gallbladder: No radiopaque stones or wall thickening. Biliary tree: No intrahepatic or extrahepatic dilation, accounting for age. Spleen: No splenomegaly. Pancreas: No pancreatic ductal dilation. Adrenals: No definite focal adrenal nodules. Stable appearance of mild thickening of the left adrenal gland. Kidneys and ureters: No hydronephrosis. No renal cystic lesion which requires follow up. No solid mas s. Homogeneous enhancement. No perinephric stranding. Bilateral ureters are normal in course and ana maria florencio. No periureteral stranding. Stomach, bowel and peritoneum: No gastric or small bowel dilation. No abnormal wall thickening. No pa thologic free fluid. Stable postsurgical changes of partial colectomy. Lymph nodes: No central or retroperitoneal adenopathy. Vessels: No infrarenal aortic aneurysm. Patent portal vein. 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 Redemonstrati on of cystic lesion in the left adnexa measuring 4.0 x 2.4 cm, previously 4.9 x 3.5 cm. Bladder: No abnormal wall thickening, accounting for underdistention. Pelvic lymph nodes: No pelvic adenopathy by size criteria. Bones: No aggressive osseous abnormality. No acute compression fracture. Multilevel spondylosis. Other: No significant ventral or inguinal hernia. IMPRESSION: CT abdomen and pelvis without acute abnormalities. No evidence to suggest pyelonephritis. No evidence for obstructive uropathy. Persistent cystic lesion in the left adnexa measuring slightly smaller than prior study. Other chronic/acute findings as above. Reviewed by: Ar Lockhart MD on 12/17/2023 12:10 PM CARLOS Approved by: Ar Lockhart MD on 12/17/2023 12:10 PM [id number] Station ID: [id number]
[2023-12-17] MEDS: iohexoL-300 100 ML VIAL IVP ONE (18:24)
== END 2023-12-17 13:38 | disposition home or self-care (01) ==
LOC: EDUNIT# → EDBD → ED 10:30
DX: N30.00 Acute cystitis without hematuria (principal); Z88.2 Allergy status to sulfonamides
CPT/HCPCS: 36415; 51798; 71045; 74177; 80053; 81001; 83690; 85025; 99284; Q9967; 81003; 87086